=== PATIENT | female | born 1985 | race Two or more races ===

== ENCOUNTER → 2025-02-06 | Outpatient (CLI) | payer BC, SELFPAY ==
--- NOTE | 2025-02-06 16:01 | XR_ITS ---
Examination: Cervical spine 3 views Technique one AP lateral coned AP odontoid cervical spine 3 views Date and time: September 06, 2024 1608 hours INDICATIONS: Neck pain beginning one week ago. FINDINGS: Adequate alignment cervical vertebral bodies No cervical fracture. Intact odontoid. Moderate degenerative disc disease C5-C6 with early posterior osteophyte formation at this level IMPRESSION: Moderate degenerative disc disease C5-C6 with early posterior osteophyte formation
== END | disposition home or self-care (01) ==
LOC: CDIM 15:45
PROVIDERS: PCP Family Medicine; Referring Provider Family Medicine; Visit Provider Family Medicine
DX: M50.322 Other cervical disc degeneration at C5-C6 level (principal); M25.78 Osteophyte, vertebrae
CPT/HCPCS: 72040